=== PATIENT | female | born 1990 | race Caucasian/White ===

== ENCOUNTER → 2023-07-03 07:58 | Outpatient (REF) | payer BC, SELFPAY ==
--- NOTE | 2023-07-03 08:36 | PN.DIAED06 ---
Meal Plan - Gestational
- Breakfast
Gestational Diabetes Meal Plan Name: 1800 calories
Breakfast - Total Carbohydrate (grams): 30
Breakfast - Starch Carbohydrate: 1
Breakfast - Fruit Carbohydrate: 0
Breakfast - Milk Carbohydrate: 1
Breakfast - Nonstarchy Vegetables: Yes
Breakfast - Meat/Protein: 1
Breakfast - Fat: 2
- Morning Snack
Morning Snack - Total Carbohydrate (grams): 30
Morning Snack - Starch Carbohydrate: 1
Morning Snack - Fruit Carbohydrate: 0
Morning Snack - Milk Carbohydrate: 1
Morning Snack - Nonstarchy Vegetables: Yes
Morning Snack - Meat/Protein: 0.5
Morning Snack - Fat: 0
- Lunch
Lunch - Total Carbohydrate (grams): 45
Lunch - Starch Carbohydrate: 2
Lunch - Fruit Carbohydrate: 1
Lunch - Milk Carbohydrate: 0
Lunch - Nonstarchy Vegetables: Yes
Lunch - Meat/Protein: 2
Lunch - Fat: 1
- Afternoon Snack
Afternoon Snack - Total Carbohydrate (grams): 30
Afternoon Snack - Starch Carbohydrate: 1
Afternoon Snack - Fruit Carbohydrate: 1
Afternoon Snack - Milk Carbohydrate: 0
Afternoon Snack - Nonstarchy Vegetables: Yes
Afternoon Snack - Meat/Protein: 1
Afternoon Snack - Fat: 0
- Dinner
Dinner - Total Carbohydrate (grams): 45
Dinner - Starch Carbohydrate: 2
Dinner - Fruit Carbohydrate: 0
Dinner - Milk Carbohydrate: 1
Dinner - Nonstarchy Vegetables: Yes
Dinner - Meat/Protein: 2
Dinner - Fat: 2
- Evening Snack
Evening Snack - Total Carbohydrate (grams): 30
Evening Snack - Starch Carbohydrate: 1
Evening Snack - Fruit Carbohydrate: 0
Evening Snack - Milk Carbohydrate: 1
Evening Snack - Nonstarchy Vegetables: Yes
Evening Snack - Meat/Protein: 1
Evening Snack - Fat: 1
--- NOTE | 2023-07-03 09:27 | PN.DIAED02 ---
Referral
Referred For: Gestational Diabetes Self-Management Training
PHI Release Authorization Form Signed: Yes
Care Plan
- Education Needs
Patient Education Needs: Preconception care//gestational diabetes management
Recommended Diabetes Training Program based on assessment: Gestational Diabetes Management
- Plan of Care
Plan of Care:
Diabetes Education- Cierra her for GDM, EDC 09/01/23 (31 weeks 3 days), male. 20 mo son at home. Discussed glucose metabolism and interference of placenta as well as impact of elevated BS on her fetus (hypoglycemia, macrosomia). She feels she may
require a as she experienced pelvic separation after the of her first son. She brought a One Touch Ultra glucometer and supplies from home. Instructions with good return demonstration with result 82 mg/dl. She is fearful of testing
but was able to perform the task. If she has difficulty, she will ask for a CGM RX at her next OB appointment on 07/06/23. She is aware of proper testing technique, testing sites and expected results (<95 mg/dl FBS and <120mg/dl 2hr pp, <140 mg/dl 1
hr pp). Log sheet provided and she is aware to call results to Elba at [facility] every Monday, will matt if result is a one hour result. Pre 5'7', 145#, last weight 170#. Provided with 1800 charles GDM meal plan. She is having
significant food aversion to many foods- water,meats/protein,vegetables and some fruits. Discussed macronutrients and impact each plays in metabolism/impact on BS. Her current meals consist of mostly CHO, she is trying to add protein (sm amt peanut
butter, cheese) but all other suggest foods give her nausea. Her drinks are mostly lemonade/juice box. She is willing to try to dilute these drinks to decrease sugar intake as well as trying to add protein powder as this is her main deficiency. She
appears to be making an effort to experiment with different foods to try and increase protein intake. She did have this same aversion with her first child and it resolved once the baby was delivered. Her meals/snacks are also small quantities. Given
the fact that she is gaining weight, but not excessive and is having such food aversions, it is difficult to make changes. For her part, Cierra is doing her best to eat balanced. She is active but does not participate in exercise, currently baby is
in a position causing her discomfort, once baby moves, she will continue walking. She is aware that if BS remain elevated, she may require insulin. Having GDM puts her at risk for developing T2DM in the future. Provided with Gestation Diabetes
booklet, 'Choose your Foods' booklet and handout on snack options. Phone number provided for follow up questions.
== END ==
LOC: DES 07:58
PROVIDERS: ATTENDING PHYSICIAN Obstetrics & Gynecology
DX: O24.419 Gestational diabetes mellitus in pregnancy, unspecified control (principal)
CPT/HCPCS: 99078

== ENCOUNTER → 2023-07-10 16:05 | Outpatient (REF) | payer BC, SELFPAY | LOC: PNTC 16:05 | PROVIDERS: ATTENDING PHYSICIAN Obstetrics & Gynecology | DX: O09.819 Supervision of pregnancy resulting from assisted reproductive technology, unspecified trimester (principal) | CPT/HCPCS: 76816 ==

== ENCOUNTER → 2023-08-07 07:28 | Outpatient (REF) | payer BC, SELFPAY | LOC: PNTC 07:28 | PROVIDERS: ATTENDING PHYSICIAN Obstetrics & Gynecology | DX: O09.819 Supervision of pregnancy resulting from assisted reproductive technology, unspecified trimester (principal) | CPT/HCPCS: 59025; 76816 ==

== ENCOUNTER → 2023-08-14 15:45 | Outpatient (REF) | payer BC, SELFPAY | LOC: PNTC 15:45 | PROVIDERS: ATTENDING PHYSICIAN Obstetrics & Gynecology | DX: O09.819 Supervision of pregnancy resulting from assisted reproductive technology, unspecified trimester (principal) | CPT/HCPCS: 59025; 76815 ==

== ENCOUNTER → 2023-08-21 15:57 | Outpatient (REF) | payer BC, SELFPAY | LOC: PNTC 15:57 | PROVIDERS: ATTENDING PHYSICIAN Obstetrics & Gynecology | DX: O09.819 Supervision of pregnancy resulting from assisted reproductive technology, unspecified trimester (principal) | CPT/HCPCS: 59025; 76815 ==

== ENCOUNTER 2023-08-25 08:41 | Inpatient (IN) | payer BC, SELFPAY ==
[2023-08-25 08:47] VITALS: BP 104/76; BMI 26.7
[2023-08-25] MEDS: LR 1000 IV ×2 (09:15→09:46)
[2023-08-25 09:16] LABS: Glucose - Point of Care 66 mg/dl (70-99)
[2023-08-25 09:22] LABS: Hematocrit 32.9 % (37.0-47.0); Hemoglobin 11.1 g/dL (12.0-16.0); Mean Corp Hgb Conc. 33.7 g/dL (33.0-37.0); Mean Corpuscular Hgb 28.2 pg (27.0-31.0); Mean Corpuscular Volume 83.7 fL (81.0-99.0); Mean Platelet Volume 12.6 fL (7.4-10.4); Platelet Count 197 10^3/uL (130-400); Red Blood Cell Count 3.93 10^6/uL (4.20-5.40); Red Cell Dist. Width 16.5 % (11.5-14.5); White Blood Cell Count 6.8 10^3/uL (4.8-10.8)
[2023-08-25] MEDS: TYLENOL 1000 MG PO (09:45)
[2023-08-25] MEDS: BICITRA 30 ML PO (09:46)
[2023-08-25] MEDS: ANCEF 10 IV (09:46)
[2023-08-25] MEDS: PITOCIN 30 UNITS/NSS 500 ML IV (12:24)
[2023-08-25] MEDS: TORADOL 15 MG IV (17:40)
[2023-08-25] MEDS: MYLICON 80 MG PO (21:31)
[2023-08-26] MEDS: TORADOL 15 MG IV ×3 (00:14→12:01)
[2023-08-26 05:27] LABS: Hematocrit 33.7 % (37.0-47.0); Hemoglobin 11.3 g/dL (12.0-16.0); Mean Corp Hgb Conc. 33.5 g/dL (33.0-37.0); Mean Corpuscular Hgb 28.7 pg (27.0-31.0); Mean Corpuscular Volume 85.5 fL (81.0-99.0); Mean Platelet Volume 12.7 fL (7.4-10.4); Platelet Count 200 10^3/uL (130-400); Red Blood Cell Count 3.94 10^6/uL (4.20-5.40); Red Cell Dist. Width 16.6 % (11.5-14.5)
[2023-08-26] MEDS: SYNTHROID 75 MCG PO (06:34)
[2023-08-26] MEDS: SENOKOT-S 1 TABLET PO (09:09)
[2023-08-26] MEDS: PRENATAL PLUS 1 TABLET PO (09:09)
[2023-08-26] MEDS: ZYRTEC 10 MG PO (09:10)
--- NOTE | 2023-08-26 16:29 | W.PN.ANS.POP ---
Anesthesia Post Operative
- Anesthesia Post Op Note
Vital Signs Stable-See Nursing Note: Yes
Airway Patent: Yes
Adequate Pain Control: Yes
Change in Mental Status: No
Current Postoperative Nausea & Vomiting: No
Anesthesia Complications: No
General Anesthetic Recall: No
Unplanned Admission: No
Post Op Hydration Adequate: Yes
[2023-08-26] MEDS: MOTRIN 600 MG PO (19:04)
[2023-08-26] MEDS: TYLENOL 650 MG PO (20:07)
[2023-08-26] MEDS: MYLICON 80 MG PO (20:07)
[2023-08-27] MEDS: MOTRIN 600 MG PO ×2 (01:15→08:10)
[2023-08-27] MEDS: SYNTHROID 75 MCG PO (06:10)
[2023-08-27] MEDS: PRENATAL PLUS 1 TABLET PO (08:08)
[2023-08-27] MEDS: ZYRTEC 10 MG PO (08:08)
[2023-08-27] MEDS: SENOKOT-S 1 TABLET PO (08:09)
--- NOTE | 2023-08-27 09:07 | W.DS.TRANS ---
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
-
Discharge Instructions:
Discharge Diagnosis/Procedures section
Instructions:
Stand-Alone Forms: LDRP Delivery
Changes to Home Medications: No
Discharge Medications:
DC Medications w/original date entered in [employer]
Vitamin Tablet 1 tab PO DAILY VITAMIN 03/20/19
Zyrtec 10 mg PO DAILY Allergies 03/20/19
acetaminophen 325 mg tablet 650 mg (2 x 325 mg) PO Q4HPRN PRN mild pain #0 tabs 08/27/23
ibuprofen 600 mg tablet 600 mg PO Q6HPRN PRN cramps #45 tabs 08/27/23
levothyroxine 75 mcg tablet 75 mcg PO DAILY @ 0600 #0 tabs 08/27/23
sennosides 8.6 mg-docusate sodium 50 mg tablet (Stool Softener-Stimulant Laxative) 1 tab PO DAILYPRN PRN constipation #0 tabs 08/27/23
Home Medication Changes
Pending Results: No
[2023-08-29 14:53] LABS: Syphilis/T. pallidum Ab Reflex Negative (Negative)
== END 2023-08-27 14:22 | disposition home or self-care (01) | DRG 788 ==
LOC: LDRP 08:41
PROVIDERS: ADMITTING PHYSICIAN Obstetrics & Gynecology
PROC: 6A550ZT Pheresis of Cord Blood Stem Cells, Single (ICD-10-PCS; 2023-08-25)
PROC: 10D00Z1 Extraction of Products of Conception, Low, Open Approach (ICD-10-PCS; 2023-08-25)
DX: O24.420 Gestational diabetes mellitus in childbirth, diet controlled (principal); Z3A.39 39 weeks gestation of pregnancy; Z37.0 Single live birth; O43.193 Other malformation of placenta, third trimester; Z83.79 Family history of other diseases of the digestive system; Z80.3 Family history of malignant neoplasm of breast; Z80.0 Family history of malignant neoplasm of digestive organs; Z83.49 Family history of other endocrine, nutritional and metabolic diseases; Z14.8 Genetic carrier of other disease; E03.9 Hypothyroidism, unspecified; O99.284 Endocrine, nutritional and metabolic diseases complicating childbirth; O99.344 Other mental disorders complicating childbirth; F41.9 Anxiety disorder, unspecified; Z87.828 Personal history of other (healed) physical injury and trauma
CPT/HCPCS: 36415; 82962; 85027; 86780; 86850; 86900; 86901

== ENCOUNTER → 2025-02-19 15:56 | Outpatient (REF) | payer BC, SELFPAY | LOC: RAD 15:56 | PROVIDERS: ATTENDING PHYSICIAN Obstetrics & Gynecology; FAMILY PHYSICIAN Physician Assistant Medical | DX: O20.8 Other hemorrhage in early pregnancy (principal) | CPT/HCPCS: 76801 ==

== ENCOUNTER → 2025-03-04 15:31 | Outpatient (REF) | payer BC, SELFPAY | LOC: PNTC 15:31 | PROVIDERS: ATTENDING PHYSICIAN Student in an Organized Health Care Education/Training Program | DX: Z36.0 Encounter for antenatal screening for chromosomal anomalies (principal); Z36.82 Encounter for antenatal screening for nuchal translucency; O09.521 Supervision of elderly multigravida, first trimester; O09.811 Supervision of pregnancy resulting from assisted reproductive technology, first trimester | CPT/HCPCS: 36415; 76801; 76813 ==

== ENCOUNTER → 2025-04-22 15:42 | Outpatient (REF) | payer BC, SELFPAY | LOC: PNTC 15:42 | PROVIDERS: ATTENDING PHYSICIAN Student in an Organized Health Care Education/Training Program | DX: O09.522 Supervision of elderly multigravida, second trimester (principal); O09.812 Supervision of pregnancy resulting from assisted reproductive technology, second trimester; Z36.3 Encounter for antenatal screening for malformations; Z36.86 Encounter for antenatal screening for cervical length | CPT/HCPCS: 76811; 76817 ==